=== PATIENT | female | born 1985 | race Caucasian/White ===

== ENCOUNTER 2018-08-27 19:40 | Emergency (ER) | payer MEDICAID ==
[~2018-08-27] VITALS: Ht 165.1 cm; Wt 81.8 kg
[~2018-08-27 19:40] MED LIST: LORA1TAB3 PO
[2018-08-27 21:30] VITALS: BP 112/59
[2018-08-29] MEDS ORDERED: DIVA-78 PO (14:38)
[2018-08-29] MEDS ORDERED: FLUO-191 PO (14:38)
== END 2018-08-27 21:35 | disposition home or self-care (01) ==
LOC: EMS 19:40
DX: T74.21XA Adult sexual abuse, confirmed, initial encounter (principal); F41.9 Anxiety disorder, unspecified; F31.9 Bipolar disorder, unspecified; F17.210 Nicotine dependence, cigarettes, uncomplicated; Z59.0 Homelessness; Y92.89 Other specified places as the place of occurrence of the external cause

== ENCOUNTER 2020-05-01 06:57 | Emergency (ER) | payer MEDICAID, OTHER ==
[~2020-05-01] VITALS: Ht 162.6 cm; Wt 81.8 kg
[~2020-05-01 06:57] MED LIST changes: +DIVA-112 PO; +FLUO-191 PO; -LORA1TAB3 PO
[2020-05-01 08:10] LABS: COVID AG,FIA SOURCE NASOPHARYNGEAL
[2020-05-01 08:18] LABS: AMPHET/METH SCREEN,URINE POSITIVE (NEGATIVE); BARBITURATE SCREEN, URINE NEGATIVE (NEGATIVE); BENZODIAZEPINES SCREEN,URINE NEGATIVE (NEGATIVE); CANNABINOID SCREEN,URINE NEGATIVE (NEGATIVE); COCAINE SCREEN,URINE NEGATIVE (NEGATIVE); METHADONE SCREEN, URINE NEGATIVE (NEGATIVE); OPIATE SCREEN,URINE NEGATIVE (NEGATIVE)
[2020-05-01 08:21] LABS: BASOPHILS % (AUTO) 0.7 % (0.0-2.0); EOSINOPHILS % (AUTO) 2.7 % (1.0-6.0); HEMATOCRIT 37.2 % (36-46); HEMOGLOBIN 12.5 g/dL (12.0-16.0); LYMPHOCYTES # (AUTO) 1.5 K/uL (1.0-4.8); LYMPHOCYTES % (AUTO) 29.4 % (22.0-44.0); MEAN CORPUSCULAR HEMOGLOBIN 32.7 pg (26.0-34.0); MEAN CORPUSCULAR HGB CONC 33.6 G/dL (31.0-37.0); MEAN CORPUSCULAR VOLUME 97 fL (80-100); MONOCYTES # (AUTO) 0.4 K/uL (0.1-1.0); MONOCYTES % (AUTO) 8.4 % (2.0-9.0); NEUTROPHILS # (AUTO) 3.1 K/uL (1.8-7.7); NEUTROPHILS % (AUTO) 58.8 % (40.0-70.0); PLATELET COUNT (AUTO) 182 K/uL (150-450); RED BLOOD CELL COUNT(AUTO) 3.83 MIL/uL (4.00-5.20); RED CELL DISTRIBUTION WIDTH 13.4 % (11.5-14.5)
[2020-05-01 08:23] LABS: PHENCYCLIDINE SCREEN,URINE NEGATIVE (NEGATIVE)
[2020-05-01 08:30] LABS: ANION GAP 8 mmol/L (8-16); CALCIUM, TOTAL 8.7 mg/dL (8.8-10.5); CARBON DIOXIDE 27 mmol/L (22-29); CHLORIDE 103 mmol/L (98-107); CREATININE 0.75 mg/dL (0.60-1.30); GLOMERULAR FILTR. RATE CALC > 60 mL/min (>60); GLUCOSE,RANDOM 102 mg/dL (70-110); POTASSIUM 3.4 mmol/L (3.5-5.1); SODIUM SERUM 138 mmol/L (136-145); UREA NITROGEN, BLOOD 12 mg/dL (7-18)
[2020-05-01 08:36] VITALS: BP 110/78
[2020-05-01 08:41] LABS: ALANINE AMINOTRANSFERASE 12 U/L (12-78); ALBUMIN 3.7 g/dL (3.4-5.0); ALKALINE PHOSPHATASE 65 U/L (46-116); ASPARTATE AMINOTRANSFERASE 8 U/L (15-37); BILIRUBIN,TOTAL 0.7 mg/dL (0.1-1.0); HCG,QUANTITATIVE 1 mIU/mL (0-6); TOTAL PROTEIN, SERUM 7.2 g/dL (6.4-8.2); VALPROIC ACID < 3 mcg/mL (50-100)
[2020-05-01] MEDS ORDERED: ACETAMINOPHEN 325 MG TABLET PO PRN (09:15)
[2020-05-01] MEDS ORDERED: ONDANSETRON HCL 4 MG/2 ML VIAL IVP PRN (09:15)
[2020-05-01] MEDS ORDERED: LORazepam 2 MG TABLET PO PRN (11:15)
[2020-05-01] MEDS ORDERED: ZOLPIDEM TARTRATE 10 MG TABLET PO PRN (11:15)
[2020-05-01] MEDS ORDERED: QUEtiapine FUMARATE 100 MG TABLET PO PRN (11:15)
== END 2020-05-01 11:14 | disposition left against medical advice (07) ==
LOC: EMS 06:57 → UNDOADMIN 08:52 → 6S 08:52 → EMS 11:14
DX: F31.9 Bipolar disorder, unspecified (principal); R07.89 Other chest pain; F41.9 Anxiety disorder, unspecified; F17.210 Nicotine dependence, cigarettes, uncomplicated; F11.90 Opioid use, unspecified, uncomplicated; F19.90 Other psychoactive substance use, unspecified, uncomplicated; Z20.828 Contact with and (suspected) exposure to other viral communicable diseases
CPT/HCPCS: 36415; 71045; 80053; 80164; 80307; 84484; 84702; 85025; 87426; 93005; 99285; G0480

== ENCOUNTER 2021-12-05 02:29 | Inpatient (IN) | payer MEDICAID, OTHER ==
[~2021-12-05] VITALS: Ht 165.1 cm; Wt 76.8 kg
[~2021-12-05 02:29] MED LIST changes: +FLUO-177 PO; -FLUO-191 PO
[2021-12-05 03:13] LABS: COVID AG,FIA SOURCE NASOPHARYNGEAL
[2021-12-05 03:15] LABS: BASOPHILS % (AUTO) 0.5 % (0.0-2.0); EOSINOPHILS % (AUTO) 2.3 % (1.0-6.0); HEMATOCRIT 38.8 % (36-46); HEMOGLOBIN 13.3 g/dL (12.0-16.0); LYMPHOCYTES # (AUTO) 1.6 K/uL (1.0-4.8); LYMPHOCYTES % (AUTO) 26.8 % (22.0-44.0); MEAN CORPUSCULAR HEMOGLOBIN 32.4 pg (26.0-34.0); MEAN CORPUSCULAR HGB CONC 34.3 G/dL (31.0-37.0); MEAN CORPUSCULAR VOLUME 94 fL (80-100); MONOCYTES # (AUTO) 0.4 K/uL (0.1-1.0); MONOCYTES % (AUTO) 7.1 % (2.0-9.0); NEUTROPHILS # (AUTO) 3.7 K/uL (1.8-7.7); NEUTROPHILS % (AUTO) 63.3 % (40.0-70.0); PLATELET COUNT (AUTO) 190 K/uL (150-450); RED BLOOD CELL COUNT(AUTO) 4.12 MIL/uL (4.00-5.20); RED CELL DISTRIBUTION WIDTH 13.2 % (11.5-14.5)
[2021-12-05] MEDS ORDERED: NALOXONE HCL 1 MG/ML 2 ML SYRINGE IVP ONE ×4 (03:15)
[2021-12-05 03:18] LABS: ANION GAP 11 mmol/L (8-16); CARBON DIOXIDE 26 mmol/L (22-29); CHLORIDE 105 mmol/L (98-107); GLUCOSE,RANDOM 121 mg/dL (70-110); POTASSIUM 3.2 mmol/L (3.5-5.1); SODIUM SERUM 142 mmol/L (136-145); UREA NITROGEN, BLOOD 10 mg/dL (7-18)
[2021-12-05 03:21] LABS: GLOMERULAR FILTR. RATE CALC > 60 mL/min (>60); SALICYLATE 2.1 mg/dL (2.8-20.0)
[2021-12-05] MEDS ORDERED: MAGNESIUM SULFATE 2 GM, MVI, ADULT NO.1 WITH VIT K 10 ML, THIAMINE 100 MG, FOLIC ACID 1... IV ONE ×10 (03:30→13:15)
[2021-12-05 03:34] LABS: ALANINE AMINOTRANSFERASE 18 U/L (12-78); ALBUMIN 3.7 g/dL (3.4-5.0); ALKALINE PHOSPHATASE 69 U/L (46-116); ASPARTATE AMINOTRANSFERASE 11 U/L (15-37); BILIRUBIN,TOTAL 0.2 mg/dL (0.1-1.0); HCG,QUANTITATIVE < 1 mIU/mL (0-6); THYROID STIMULATING HORMONE 0.87 uIU/mL (0.36-3.74); TOTAL PROTEIN, SERUM 7.2 g/dL (6.4-8.2)
[2021-12-05 03:39] LABS: ACETAMINOPHEN < 2 mcg/mL (10-30)
[2021-12-05 03:50] LABS: CREATINE KINASE, TOTAL ONLY 50 U/L (26-192)
[2021-12-05] MEDS ORDERED: SODIUM CHLORIDE 0.9% 1,000 ML IV ONE ×2 (05:15→06:15)
[2021-12-05 05:38] LABS: VALPROIC ACID < 3 mcg/mL (50-100)
[2021-12-05 06:03] LABS: APPEARANCE,URINE CLEAR (CLEAR); BILIRUBIN,URINE NEGATIVE (NEGATIVE); GLUCOSE, URINE (UA) NEGATIVE (NEGATIVE); KETONES,URINE NEGATIVE (NEGATIVE); LEUKOCYTE ESTERASE ,URINE NEGATIVE (NEGATIVE); NITRATE,URINE NEGATIVE (NEGATIVE); OCCULT BLOOD,URINE NEGATIVE (NEGATIVE); PROTEIN,URINE NEGATIVE (NEGATIVE); SPECIFIC GRAVITIY, URINE 1.011 (1.003-1.030); UROBILINOGEN,URINE <=1.0 mg/dL (<=1.0)
[2021-12-05 06:08] LABS: AMPHET/METH SCREEN,URINE POSITIVE (NEGATIVE); BARBITURATE SCREEN, URINE NEGATIVE (NEGATIVE); BENZODIAZEPINES SCREEN,URINE NEGATIVE (NEGATIVE); CANNABINOID SCREEN,URINE NEGATIVE (NEGATIVE); COCAINE SCREEN,URINE NEGATIVE (NEGATIVE); METHADONE SCREEN, URINE NEGATIVE (NEGATIVE); OPIATE SCREEN,URINE NEGATIVE (NEGATIVE); PHENCYCLIDINE SCREEN,URINE NEGATIVE (NEGATIVE)
[2021-12-05 06:13] LABS: INFLUENZA TYPE A NEGATIVE FOR TYPE A (NEGATIVE); INFLUENZA TYPE B NEGATIVE FOR TYPE B (NEGATIVE)
[2021-12-05 06:16] LABS: BACTERIA,URINE None Seen /HPF (None Seen); SQUAMOUS EPITHELIAL CELL,UR Rare /LPF (None Seen); WBC,URINE None Seen /HPF (0-5)
[2021-12-05 06:38] LABS: LIPASE 92 U/L (73-393)
[2021-12-05] MEDS ORDERED: POTASSIUM CHLORIDE 10% 40 MEQ/30 ML LIQUID UDCUP PO ONE (07:15)
[2021-12-05] MEDS ORDERED: 0.9% SODIUM CHLORIDE 10 ML SYRINGE IVP PRN (09:00)
[2021-12-05] MEDS ORDERED: ACETAMINOPHEN 325 MG TABLET PO PRN ×2 (09:00→13:15)
[2021-12-05] MEDS ORDERED: ONDANSETRON HCL 4 MG/2 ML VIAL IVP PRN ×2 (09:00→13:15)
[2021-12-05] MEDS ORDERED: HYDROCODONE/ACETAMINOPHEN 5-325 MG TABLET PO PRN (13:15)
[2021-12-05] MEDS ORDERED: ZOLPIDEM TARTRATE 5 MG TABLET PO PRN (13:15)
[2021-12-05] MEDS ORDERED: MAGNESIUM HYDROXIDE SUSPENSION 30 ML UDCUP PO PRN (13:15)
[2021-12-05] MEDS ORDERED: BISACODYL 10 MG RECTAL RECTAL SUPPOSITORY PR PRN (13:15)
[2021-12-05] MEDS: ALPRAZolam 1 MG TABLET PO PRN ×2 (15:48→23:08)
[2021-12-05] MEDS: HEPARIN SODIUM,PORCINE 5,000 UNITS/ML VIAL SQ SCH ×2 (15:48→23:08)
[2021-12-05] MEDS: MORPHINE SULFATE 2 MG/ML SYRINGE IVP PRN (15:48)
[2021-12-05 16:07] VITALS: BP 98/52
[2021-12-05 19:37] VITALS: BP 101/61
[2021-12-05] MEDS: DOCUSATE SODIUM 100 MG CAPSULE PO SCH (20:11)
[2021-12-06 00:11] VITALS: BP 97/56
[2021-12-06 05:40] VITALS: BP 91/50
[2021-12-06] MEDS ORDERED: RINGERS SOLUTION,LACTATED 500 ML IV ONE ×2 (05:50→06:00)
[2021-12-06] MEDS ORDERED: RINGERS SOLUTION,LACTATED 1,000 ML IV ONE (05:52)
[2021-12-06 06:22] LABS: BASOPHILS % (AUTO) 1.2 % (0.0-2.0); EOSINOPHILS % (AUTO) 3.6 % (1.0-6.0); HEMATOCRIT 35.5 % (36-46); HEMOGLOBIN 12.2 g/dL (12.0-16.0); LYMPHOCYTES # (AUTO) 1.9 K/uL (1.0-4.8); MEAN CORPUSCULAR HEMOGLOBIN 32.7 pg (26.0-34.0); MEAN CORPUSCULAR HGB CONC 34.4 G/dL (31.0-37.0); MEAN CORPUSCULAR VOLUME 95 fL (80-100); MONOCYTES # (AUTO) 0.4 K/uL (0.1-1.0); MONOCYTES % (AUTO) 7.5 % (2.0-9.0); NEUTROPHILS # (AUTO) 2.5 K/uL (1.8-7.7); NEUTROPHILS % (AUTO) 49.7 % (40.0-70.0); PLATELET COUNT (AUTO) 191 K/uL (150-450); RED BLOOD CELL COUNT(AUTO) 3.75 MIL/uL (4.00-5.20); RED CELL DISTRIBUTION WIDTH 13.1 % (11.5-14.5)
[2021-12-06 06:40] LABS: ANION GAP 7 mmol/L (8-16); CALCIUM, TOTAL 8.3 mg/dL (8.8-10.5); CARBON DIOXIDE 25 mmol/L (22-29); CHLORIDE 106 mmol/L (98-107); CREATININE 0.67 mg/dL (0.60-1.30); GLUCOSE,RANDOM 121 mg/dL (70-110); POTASSIUM 3.2 mmol/L (3.5-5.1); SODIUM SERUM 138 mmol/L (136-145); UREA NITROGEN, BLOOD 6 mg/dL (7-18)
[2021-12-06 07:19] LABS: GLOMERULAR FILTR. RATE CALC > 60 mL/min (>60)
[2021-12-06 07:52] VITALS: BP 91/57
[2021-12-06] MEDS: DOCUSATE SODIUM 100 MG CAPSULE PO SCH (08:30)
[2021-12-06] MEDS: HEPARIN SODIUM,PORCINE 5,000 UNITS/ML VIAL SQ SCH (08:30)
[2021-12-06] MEDS: MORPHINE SULFATE 2 MG/ML SYRINGE IVP PRN (08:41)
[2021-12-06] MEDS ORDERED: PANTOPRAZOLE SODIUM 40 MG DR TABLET PO SCH (09:00)
== END 2021-12-06 13:23 | disposition home or self-care (01) | DRG 52 ==
LOC: EMS 02:33 → 6S 14:56
PROVIDERS: ADMIT Internal Medicine; ATTEND Internal Medicine
DX: G92.8 Other toxic encephalopathy (principal); E86.0 Dehydration; E87.6 Hypokalemia; F10.239 Alcohol dependence with withdrawal, unspecified; F15.10 Other stimulant abuse, uncomplicated; F31.9 Bipolar disorder, unspecified; Y90.6 Blood alcohol level of 120-199 mg/100 ml; Z20.822 Contact with and (suspected) exposure to COVID-19; F41.9 Anxiety disorder, unspecified; Z79.899 Other long term (current) drug therapy; Z87.891 Personal history of nicotine dependence; Z59.00 Homelessness unspecified
CPT/HCPCS: 70450; 71045; 72125; 72131; 72170; 80048; 80053; 80164; 81001; 82550; 83605; 83690; 83735; 84443; 84702; 85025; 87040; 87804; 93005; 99291; G0480; G0481; J1644; J2270; J2310; J3411; J3475; J3490; J7030; J7120; 36415-L1; 36415-TC

== ENCOUNTER 2022-08-22 17:14 | Emergency (ER) | payer MEDICAID ==
[~2022-08-22] VITALS: Ht 167.6 cm; Wt 90.9 kg
[2022-08-22 17:14] VITALS: BP 118/75
== END 2022-08-22 17:43 | disposition left against medical advice (07) ==
LOC: EMS 17:15
DX: R07.89 Other chest pain (principal); Z53.21 Procedure and treatment not carried out due to patient leaving prior to being seen by health care provider
CPT/HCPCS: 93005; 99281; Z7502

== ENCOUNTER 2022-09-01 22:09 | Emergency (ER) | payer MEDICAID ==
[~2022-09-01] VITALS: Ht 165.1 cm; Wt 90.0 kg
[2022-09-01 22:16] VITALS: BP 120/69
[2022-09-01 22:30] LABS: COVID AG,FIA SOURCE NASAL SWAB
[2022-09-01 22:41] LABS: INFLUENZA TYPE A NEGATIVE FOR TYPE A (NEGATIVE); INFLUENZA TYPE B NEGATIVE FOR TYPE B (NEGATIVE)
[2022-09-03] MEDS ORDERED: DIVA500T53 PO (21:52)
[2022-09-03] MEDS ORDERED: FLUO20CA36 PO (21:52)
[2022-09-03] MEDS ORDERED: MICO45CR44 VG (21:52)
[2022-09-03] MEDS ORDERED: METR500 PO (21:52)
[2022-09-03] MEDS ORDERED: CEPH-558 PO (21:52)
[2022-09-03] MEDS ORDERED: LORA-1000 PO (21:52)
== END 2022-09-02 00:52 | disposition left against medical advice (07) ==
LOC: EMS 22:10
DX: Z53.21 Procedure and treatment not carried out due to patient leaving prior to being seen by health care provider (principal); Z20.822 Contact with and (suspected) exposure to COVID-19
CPT/HCPCS: 87804; 93005; 99281

== ENCOUNTER 2022-09-03 18:24 | Emergency (ER) | payer MEDICAID ==
[~2022-09-03] VITALS: Ht 165.1 cm; Wt 90.9 kg
[2022-09-03 18:48] LABS: APPEARANCE,URINE HAZY (CLEAR); BILIRUBIN,URINE NEGATIVE (NEGATIVE); GLUCOSE, URINE (UA) NEGATIVE (NEGATIVE); KETONES,URINE NEGATIVE (NEGATIVE); LEUKOCYTE ESTERASE ,URINE LARGE (NEGATIVE); NITRATE,URINE POSITIVE (NEGATIVE); OCCULT BLOOD,URINE NEGATIVE (NEGATIVE); PH,URINE 6.5 (5.0-8.0); PROTEIN,URINE TRACE mg/dL (NEGATIVE); SPECIFIC GRAVITIY, URINE 1.024 (1.003-1.030); UROBILINOGEN,URINE <=1.0 mg/dL (<=1.0)
[2022-09-03 19:01] LABS: BACTERIA,URINE Many /HPF (None Seen); RBC,URINE None Seen /HPF (0-2); SQUAMOUS EPITHELIAL CELL,UR Few /LPF (None Seen)
[2022-09-03] MEDS ORDERED: AZITHROMYCIN 500 MG TABLET PO ONE (21:15)
[2022-09-03] MEDS ORDERED: LIDOCAINE/PF 1% 2 ML VIAL IM ONE (21:15)
[2022-09-03] MEDS ORDERED: CefTRIAXone SODIUM 1 GM/VIAL IM ONE (21:15)
[2022-09-03] MEDS ORDERED: CEPH-558 PO (21:52)
[2022-09-03] MEDS ORDERED: LORA-1000 PO (21:52)
[2022-09-03] MEDS ORDERED: MICO45CR44 VG (21:52)
[2022-09-03] MEDS ORDERED: DIVA500T53 PO (21:52)
[2022-09-03] MEDS ORDERED: METR500 PO (21:52)
[2022-09-03] MEDS ORDERED: FLUO20CA36 PO (21:52)
[2022-09-03 22:36] VITALS: BP 109/62
[2022-09-05 03:06] LABS: HIV 1-2 SCREEN 4TH GEN W/RFLX Non Reactive (Non Reactive)
== END 2022-09-03 22:53 | disposition home or self-care (01) ==
LOC: EMS 18:26
DX: N39.0 Urinary tract infection, site not specified (principal); N76.0 Acute vaginitis; F31.9 Bipolar disorder, unspecified; F41.9 Anxiety disorder, unspecified; F17.210 Nicotine dependence, cigarettes, uncomplicated; F15.90 Other stimulant use, unspecified, uncomplicated; Z59.00 Homelessness unspecified
CPT/HCPCS: 99283; 81001; 84703; 36415; 87086; 87186; 87491; 87591; 96372; 87389; J0696; J3490; Q9967

== ENCOUNTER 2022-09-09 18:55 | Emergency (ER) | payer MEDICAID ==
[~2022-09-09] VITALS: Ht 165.1 cm; Wt 91.4 kg
[~2022-09-09 18:55] MED LIST changes: +CEPH-558 PO; -DIVA-112 PO; +DIVA500T53 PO; -FLUO-177 PO; +FLUO20CA36 PO; +LORA-1000 PO; +METR500 PO; +MICO45CR44 VG
[2022-09-09] MEDS ORDERED: TraMADol HCL 50 MG TABLET PO ONE (21:00)
[2022-09-09] MEDS ORDERED: IBUPROFEN 600 MG TABLET PO ONE (21:00)
[2022-09-09 21:58] VITALS: BP 121/72
[2022-09-09] MEDS ORDERED: IBUP-1554 PO (22:13)
== END 2022-09-09 22:20 | disposition home or self-care (01) ==
LOC: EMS 18:56
DX: S50.11XA Contusion of right forearm, initial encounter (principal); M79.631 Pain in right forearm; F41.9 Anxiety disorder, unspecified; F31.9 Bipolar disorder, unspecified; F17.210 Nicotine dependence, cigarettes, uncomplicated; F15.90 Other stimulant use, unspecified, uncomplicated; Z59.00 Homelessness unspecified; X58.XXXA Exposure to other specified factors, initial encounter; Y93.89 Activity, other specified; Y92.89 Other specified places as the place of occurrence of the external cause; Y99.8 Other external cause status
CPT/HCPCS: 99283

== ENCOUNTER 2022-10-03 21:19 | Emergency (ER) | payer MEDICAID ==
[~2022-10-03] VITALS: Ht 165.1 cm; Wt 90.9 kg
[~2022-10-03 21:19] MED LIST changes: -CEPH-558 PO; +IBUP-1554 PO; -LORA-1000 PO; -METR500 PO; -MICO45CR44 VG
[2022-10-03 22:22] LABS: APPEARANCE,URINE HAZY (CLEAR); BILIRUBIN,URINE NEGATIVE (NEGATIVE); GLUCOSE, URINE (UA) NEGATIVE (NEGATIVE); KETONES,URINE NEGATIVE (NEGATIVE); LEUKOCYTE ESTERASE ,URINE SMALL (NEGATIVE); NITRATE,URINE NEGATIVE (NEGATIVE); OCCULT BLOOD,URINE NEGATIVE (NEGATIVE); PROTEIN,URINE 30-70 mg/dL (NEGATIVE); UROBILINOGEN,URINE <=1.0 mg/dL (<=1.0)
[2022-10-03 22:32] LABS: AMORPHOUS SEDIMENT,UR Few /LPF (None Seen); BACTERIA,URINE Few /HPF (None Seen); FINE GRANULAR CASTS,URINE 0-2 /LPF (None Seen); RBC,URINE None Seen /HPF (0-2); SQUAMOUS EPITHELIAL CELL,UR Moderate /LPF (None Seen)
[2022-10-04] MEDS ORDERED: DIVA500T53 PO (00:26)
[2022-10-04] MEDS ORDERED: METR250 PO (00:26)
[2022-10-04] MEDS ORDERED: LORA-1000 PO (00:26)
[2022-10-04] MEDS ORDERED: MICO45CR76 VG (00:26)
[2022-10-04] MEDS ORDERED: NICO-703 TD (00:26)
[2022-10-04] MEDS ORDERED: CefTRIAXone SODIUM 1 GM/VIAL IM ONE (00:30)
[2022-10-04] MEDS ORDERED: LIDOCAINE/PF 1% 2 ML VIAL IM ONE (00:30)
[2022-10-04] MEDS ORDERED: AZITHROMYCIN 500 MG TABLET PO ONE (00:30)
[2022-10-04] MEDS ORDERED: LORazepam 1 MG TABLET PO ONE (00:30)
[2022-10-04 00:44] VITALS: BP 132/71
== END 2022-10-04 00:47 | disposition home or self-care (01) ==
LOC: EMS 21:19
DX: N76.0 Acute vaginitis (principal); F41.9 Anxiety disorder, unspecified; F31.9 Bipolar disorder, unspecified; F17.210 Nicotine dependence, cigarettes, uncomplicated; F15.90 Other stimulant use, unspecified, uncomplicated; Z59.00 Homelessness unspecified
CPT/HCPCS: 99283; 81001; 84703; 87491; 87591; 96372; J0696; J3490; Q9967

== ENCOUNTER 2022-12-03 14:39 | Emergency (ER) | payer MEDICAID ==
[~2022-12-03] VITALS: Ht 165.1 cm; Wt 86.4 kg
[~2022-12-03 14:39] MED LIST changes: +LORA-1000 PO; +METR250 PO; +MICO45CR76 VG; +NICO-703 TD
[2022-12-03 15:52] LABS: APPEARANCE,URINE CLEAR (CLEAR); BILIRUBIN,URINE NEGATIVE (NEGATIVE); GLUCOSE, URINE (UA) NEGATIVE (NEGATIVE); KETONES,URINE NEGATIVE (NEGATIVE); LEUKOCYTE ESTERASE ,URINE NEGATIVE (NEGATIVE); NITRATE,URINE NEGATIVE (NEGATIVE); OCCULT BLOOD,URINE NEGATIVE (NEGATIVE); PROTEIN,URINE NEGATIVE (NEGATIVE); SPECIFIC GRAVITIY, URINE 1.017 (1.003-1.030); UROBILINOGEN,URINE <=1.0 mg/dL (<=1.0)
[2022-12-03 15:59] LABS: AMPHET/METH SCREEN,URINE NEGATIVE (NEGATIVE); BARBITURATE SCREEN, URINE NEGATIVE (NEGATIVE); BENZODIAZEPINES SCREEN,URINE NEGATIVE (NEGATIVE); CANNABINOID SCREEN,URINE NEGATIVE (NEGATIVE); COCAINE SCREEN,URINE NEGATIVE (NEGATIVE); METHADONE SCREEN, URINE NEGATIVE (NEGATIVE); OPIATE SCREEN,URINE NEGATIVE (NEGATIVE); PHENCYCLIDINE SCREEN,URINE NEGATIVE (NEGATIVE)
[2022-12-03] MEDS ORDERED: KETOROLAC TROMETHAMINE 30 MG/ML VIAL IM ONE (20:15)
[2022-12-03 20:30] LABS: BASOPHILS % (AUTO) 1.3 % (0.0-2.0); EOSINOPHILS % (AUTO) 5.2 % (1.0-6.0); HEMATOCRIT 37.3 % (36-46); HEMOGLOBIN 12.3 g/dL (12.0-16.0); LYMPHOCYTES # (AUTO) 1.6 K/uL (1.0-4.8); LYMPHOCYTES % (AUTO) 25.2 % (22.0-44.0); MEAN CORPUSCULAR HEMOGLOBIN 31.1 pg (26.0-34.0); MEAN CORPUSCULAR VOLUME 94 fL (80-100); MONOCYTES # (AUTO) 0.6 K/uL (0.1-1.0); MONOCYTES % (AUTO) 9.4 % (2.0-9.0); NEUTROPHILS # (AUTO) 3.8 K/uL (1.8-7.7); NEUTROPHILS % (AUTO) 58.9 % (40.0-70.0); PLATELET COUNT (AUTO) 281 K/uL (150-450); RED BLOOD CELL COUNT(AUTO) 3.95 MIL/uL (4.00-5.20); RED CELL DISTRIBUTION WIDTH 14.8 % (11.5-14.5)
[2022-12-03 20:35] VITALS: BP 121/62; PULSE 96; RESP 16; TEMP 98.1
[2022-12-03 20:42] LABS: ANION GAP 11 mmol/L (8-16); CALCIUM, TOTAL 9.4 mg/dL (8.8-10.5); CARBON DIOXIDE 28 mmol/L (22-29); CHLORIDE 100 mmol/L (98-107); CREATININE 0.64 mg/dL (0.60-1.30); GLOMERULAR FILTR. RATE CALC > 60 mL/min (>60); GLUCOSE,RANDOM 96 mg/dL (70-110); POTASSIUM 4.6 mmol/L (3.5-5.1); SODIUM SERUM 139 mmol/L (136-145)
[2022-12-03 20:48] LABS: ALANINE AMINOTRANSFERASE 54 U/L (12-78); ALBUMIN 3.5 g/dL (3.4-5.0); ALKALINE PHOSPHATASE 99 U/L (46-116); ASPARTATE AMINOTRANSFERASE 28 U/L (15-37); BILIRUBIN,TOTAL 0.2 mg/dL (0.1-1.0); TOTAL PROTEIN, SERUM 7.5 g/dL (6.4-8.2)
[2022-12-03] MEDS ORDERED: LORazepam 1 MG TABLET PO ONE (21:00)
[2022-12-03] MEDS ORDERED: DIVA500T53 PO (21:18)
[2022-12-03] MEDS ORDERED: IBUP-1492 PO (21:19)
== END 2022-12-03 21:27 | disposition home or self-care (01) ==
LOC: EMS 14:39
DX: I80.252 Phlebitis and thrombophlebitis of left calf muscular vein (principal); F41.9 Anxiety disorder, unspecified; F31.9 Bipolar disorder, unspecified; F17.210 Nicotine dependence, cigarettes, uncomplicated; F15.90 Other stimulant use, unspecified, uncomplicated; Z76.0 Encounter for issue of repeat prescription; Z59.00 Homelessness unspecified; Z98.890 Other specified postprocedural states
CPT/HCPCS: 99285; 93971; 80053; 81003; 85025; 36415; 93005; 96372; 80307; J1885; G0480

== ENCOUNTER 2023-08-05 17:57 | Emergency (ER) | payer MEDICAID ==
[~2023-08-05] VITALS: Ht 165.1 cm; Wt 104.5 kg
[~2023-08-05 17:57] MED LIST changes: +IBUP-1492 PO
[2023-08-05 18:03] VITALS: BP 100/64; PULSE 73; RESP 18; TEMP 98.5
[2023-08-05] MEDS: HYDROCODONE/ACETAMINOPHEN 5-325 MG TABLET PO ONE (19:53)
[2023-08-05] MEDS ORDERED: TRAM-559 PO (20:38)
== END 2023-08-05 20:59 | disposition home or self-care (01) ==
LOC: EMS 18:16
DX: S62.501A Fracture of unspecified phalanx of right thumb, initial encounter for closed fracture (principal); F41.9 Anxiety disorder, unspecified; F31.9 Bipolar disorder, unspecified; F17.210 Nicotine dependence, cigarettes, uncomplicated; F15.90 Other stimulant use, unspecified, uncomplicated; Z90.49 Acquired absence of other specified parts of digestive tract; Z59.00 Homelessness unspecified; Z98.890 Other specified postprocedural states; X58.XXXA Exposure to other specified factors, initial encounter; Y93.89 Activity, other specified; Y92.89 Other specified places as the place of occurrence of the external cause; Y99.8 Other external cause status
CPT/HCPCS: 99283

== ENCOUNTER 2024-01-27 18:49 | Emergency (ER) | payer MEDICAID, OTHER ==
[~2024-01-27] VITALS: Ht 165.1 cm; Wt 104.5 kg
[~2024-01-27 18:49] MED LIST changes: +DIVA-153 PO; -DIVA500T53 PO; +FLUO-418 PO; -FLUO20CA36 PO; +TRAM50TA5 PO
[2024-01-27 18:54] VITALS: TEMP 98.7
[2024-01-27 19:16] LABS: COVID AG,FIA SOURCE NASAL SWAB
[2024-01-27 19:43] LABS: SARS-COV2 (COVID) ANTIGEN,FIA Negative (Negative)
[2024-01-27 19:49] LABS: INFLUENZA TYPE A NEGATIVE FOR TYPE A (NEGATIVE); INFLUENZA TYPE B NEGATIVE FOR TYPE B (NEGATIVE)
[2024-01-27] MEDS: IBUPROFEN 600 MG TABLET PO ONE (21:48)
[2024-01-27 21:53] VITALS: BP 132/71; O2SAT 99
[2024-01-27] MEDS: ALBUTEROL SULFATE HFA 90 MCG/PUFF 8 GM INHALER IH ONE (21:59)
[2024-01-27 22:00] VITALS: PULSE 85; RESP 18; O2SAT 100
== END 2024-01-27 22:09 | disposition home or self-care (01) ==
LOC: EMS 18:49
DX: J06.9 Acute upper respiratory infection, unspecified (principal); B34.9 Viral infection, unspecified; R05.9 Cough, unspecified; R51.9 Headache, unspecified; F17.210 Nicotine dependence, cigarettes, uncomplicated; F15.10 Other stimulant abuse, uncomplicated; Z88.8 Allergy status to other drugs, medicaments and biological substances; Z20.822 Contact with and (suspected) exposure to COVID-19
CPT/HCPCS: 99283; 87426; 87804; 94640; J3535

== ENCOUNTER 2024-05-30 09:01 | Emergency (ER) | payer OTHER ==
[~2024-05-30] VITALS: Ht 165.1 cm; Wt 94.0 kg
[2024-05-30 09:06] VITALS: BP 140/92; PULSE 66; RESP 16; TEMP 98.6; O2SAT 100
== END 2024-05-30 10:15 | disposition left against medical advice (07) ==
LOC: EMS 09:01
DX: M79.642 Pain in left hand (principal); Z53.21 Procedure and treatment not carried out due to patient leaving prior to being seen by health care provider

== ENCOUNTER 2024-07-05 20:27 | Emergency (ER) | payer OTHER | END 2024-07-05 20:57 | disposition left against medical advice (07) | LOC: EMS 20:27 | DX: R05.9 Cough, unspecified (principal); R06.02 Shortness of breath; Z53.21 Procedure and treatment not carried out due to patient leaving prior to being seen by health care provider ==

== ENCOUNTER 2024-08-20 07:02 | Emergency (ER) | payer OTHER ==
[~2024-08-20] VITALS: Ht 165.1 cm; Wt 95.5 kg
[2024-08-20 07:07] VITALS: TEMP 97.7
[2024-08-20] MEDS: LORazepam 1 MG TABLET PO ONE (07:55)
[2024-08-20] MEDS: LIDOCAINE 5% TRANSDERMAL PATCH TD ONE (07:55)
[2024-08-20] MEDS: MORPHINE SULFATE 4 MG/ML SYRINGE IM ONE (07:55)
[2024-08-20 09:00] VITALS: BP 115/81; PULSE 77; RESP 20; O2SAT 100
[2024-08-20] MEDS ORDERED: PERCT PO (09:05)
[2024-08-20] MEDS ORDERED: METH-659 PO (09:05)
== END 2024-08-20 10:21 | disposition home or self-care (01) ==
LOC: EMS 07:11
DX: G89.29 Other chronic pain (principal); M54.50 Low back pain, unspecified; F17.290 Nicotine dependence, other tobacco product, uncomplicated; F31.9 Bipolar disorder, unspecified; Z90.49 Acquired absence of other specified parts of digestive tract; Z90.710 Acquired absence of both cervix and uterus; Z59.00 Homelessness unspecified
CPT/HCPCS: 99283; 96372; J2270